=== PATIENT | male | born 1985 | race Caucasian/White ===

== ENCOUNTER 2018-05-07 04:39 | Emergency (ER) | payer OTHER ==
[~2018-05-07] VITALS: Ht 177.8 cm; Wt 95.3 kg
[2018-05-07 04:50] VITALS: BP_SYST 151
[2018-05-07 05:00] VITALS: BP_SYST 151
== END 2018-05-07 05:00 ==
LOC: SED 04:39
DX: Z02.89 Encounter for other administrative examinations (principal)